=== PATIENT | female | born 1955 | race Two or more races ===

== ENCOUNTER 2024-08-06 12:32 | Inpatient (IN) | payer OTHER, MEDICAID ==
[~2024-08-06] VITALS: Ht 149.9 cm; Wt 64.0 kg
--- NOTE | 2024-08-06 14:12 | ED.PDOC ---
History of Present Illness HPI Comments 69-year-old female presents with a chief complaint of rectal pain and chills x 2 days. Patient states that her pain is localized to her rectum, radiates to her LLQ/RLQ, describes as aching, and rates her pain a 10/10. Patient denies any rectal bleeding or blood in her stool. Patient reports that her last colonoscopy was x 2 years ago and was told that she had Diverticulitis. Patient denies any penetration or trauma to her rectum prior to onset of symptoms. Chief Complaint: Rectal Pain Time Seen by MD: 14:04 Reviewed Notes: Nurses Notes, Medications, Allergies Allergies: Coded Allergies: NO KNOWN ALLERGIES (Unverified , 08/06/24) Information Source: Patient Mode of Arrival: Ambulatory Severity: Moderate Timing: Days Duration: Since onset Prehospital treatment: None Past Medical History PAST MEDICAL HISTORY: Asthma, CVA, UTI'S Past Medical History (Other): Aneurysm, Lupus Surgical History: Cholecystectomy Surgical History (Other): Cataracts DAIRY INSPECTOR History: Denies all DAIRY INSPECTOR Hx Family History Family History: Reviewed,noncontributory to illness Social History Smoker: Non-Smoker Alcohol: Denies ETOH Use Drugs: Denies Drug Use Lives In: Home Constitutional: reports: chills; denies: diaphoresis, fatigue, fever, malaise, sweats, weakness, others EENTM: denies: blurred vision, double vision, ear bleeding, ear discharge, ear drainage, ear pain, ear ringing, eye pain, eye redness, hearing loss, mouth pain, mouth swelling, nasal discharge, nose bleeding, nose congestion, nose pain, photophobia, tearing, throat pain, throat swelling, voice changes, others Respiratory: denies: cough, hemoptysis, orthopnea, SOB at rest, shortness of breath, SOB with excertion, stridor, wheezing, others Cardiovascular: denies: chest pain, dizzy spells, diaphoresis, Dyspnea on exertion, edema, irregular heart beat, left arm pain, lightheadedness, palpitations, PND, syncope, others Gastrointestinal: reports: rectal pain; denies: abdomen distended, abdominal pain, blood streaked bowels, constipated, diarrhea, dysphagia, difficulty swallowing, hematemesis, melena, nausea, poor appetite, poor fluid intake, rec alina bleeding, vomiting, others Genitourinary: denies: abnormal vagina bleeding, burning, dyspareunia, dysuria, flank pain, frequency, hematuria, incontinence, pain, , vagina discharge, urgency, others Neurological: denies: dizziness, fainting, headache, left sided numbness, left sided weakness, numbness, paresthesia, pre-existing deficit, right sided numbness, right sided weakness, seizure, speech problems, tingling, tremors, weakness, others Musculoskeletal: denies: back pain, gout, joint pain, joint swelling, muscle pain, muscle stiffness, neck pain, others Integumetry: denies: bruises, change in color, change in hair/nails, dryness, laceration, lesions, lumps, rash, wounds, others Allergic/Immunocompromised: denies: Difficulty Healing, Frequent Infections, Hives, Itching, others Hematologic/Lymphatic: denies: anemia, blood clots, easy bleeding, easy bruising, swollen glands, others Endocrine: denies: excessive hunger, excessive sweating, excessive thirst, excessive urination, flushing, intolerance to cold, intolerance to heat, unexplained weight gain, unexplained weight loss, others Psychiatric: denies: anxiety, bipolar disorder, depression, hopeless, panic disorder, schizophrenia, sleepless, suicidal, others All Other Systems: Reviewed and Negative Physical Exam General Appearance: Moderate Distress HEENT: Normal ENT Inspection, Pharynx Normal, TMs Normal Neck: Full Range of Motion, Non-Tender, Normal, Normal Inspection Respiratory: Chest Non-Tender, Lungs Clear, No Accessory Muscle Use, No Respiratory Distress, Normal Breath Sounds Cardiovascular: No Edema, No JVD, No Murmur, No Gallop, Normal Peripheral Pulses, Regular Rate/Rhythm Breast Exam: Deferred Gastrointestinal: No Organomegaly, No Pulsatile Mass, Normal Bowel Sounds, Soft, Suprapubic, Tenderness Genitalia: Deferred Pelvic: Deferred Rectal: Deferred Extremities: No calf tenderness, Normal capillary refill, Normal inspection, Normal range of motion, Non-tender, No pedal edema Musculoskeletal : Apperance: Normal Neurologic: Alert, claim review medical director II-XII nml as Tested, No Motor Deficits, Normal Affect, Normal Mood, No Sensory Deficits Cerebellar Function: Normal Reflexes: Normal Skin: Dry, Normal Color, Warm Lymphatic: No Adenopathy Was a procedure done? Was a procedure done?: No Differential Dx Considerations may include: Diverticulitis, UTI, rectal mass, generalized weakness X-Ray, Labs, Meds, VS Vital Signs Date Time Temp Pulse Resp B/P (MAP) Pulse Ox O2 Delivery O2 Flow Rate FiO2 08/06/24 13:17 97.8 89 16 148/82 (104) 96 Lab Test 08/06/24 14:30 08/06/24 13:04 Range/Units White Blood Count 4.7 4.4-10.8 10^3/uL Red Blood Count 4.31 4.0-5.20 10^6/uL Hemoglobin 12.5 12.2-16.2 g/dL Hematocrit 37.9 36.0-46.0 % Mean Corpuscular Volume 88.0 80.0-100.0 fL Mean Corpuscular Hemoglobin 29.1 28.0-32.0 pg Mean Corpuscular Hemoglobin Concent 33.0 32.0-36.0 g/dL Red Cell Distribution Width 14.0 11.8-14.3 % Platelet Count 250 140-450 10^3/uL Mean Platelet Volume 8.1 6.9-10.8 fL Neutrophils (%) (Auto) 58.9 37.0-80.0 % Lymphocytes (%) (Auto) 28.2 10.0-50.0 % Monocytes (%) (Auto) 8.4 0.0-12.0 % Eosinophils (%) (Auto) 3.5 0.0-7.0 % Basophils (%) (Auto) 1.0 0.0-2.0 % Neutrophils # (Auto) 2.8 1.6-8.6 10 ^3/uL Lymphocytes # (Auto) 1.3 0.4-5.4 10 ^3/uL Monocytes # (Auto) 0.4 0-1.3 10 ^3/uL Eosinophils # (Auto) 0.2 0-0.8 10 ^3/uL Basophils # (Auto) 0 0-0.2 10 ^3/uL Nucleated Red Blood Cells 0.2 % Sodium Level 136 136-145 mmol/L Potassium Level 4.6 3.5-5.1 mmol/L Chloride Level 104 98-107 mmol/L Carbon Dioxide Level 25 20-31 mmol/L Anion Gap 7 5-15 Blood Urea Nitrogen 13 9-23 mg/dL Creatinine 0.77 0.550-1.02 mg/dL Glomerular Filtration Rate Calc 83 >90 mL/min BUN/Creatinine Ratio 16.9 10.0-20.0 Serum Glucose 103 74-106 mg/dL Calcium Level 9.0 8.7-10.4 mg/dL Total Bilirubin 0.3 0.2-1.0 mg/dL Aspartate Amino Transferase (AST) 17 13-40 U/L Alanine Aminotransferase (ALT) 20 7-40 U/L Alkaline Phosphatase 95 46-116 U/L Total Protein 7.0 5.7-8.2 g/dL Albumin 4.6 3.2-4.8 g/dL Lipase 41 12-53 U/L Urine Color Light-yellow Yellow Urine Clarity Turbid H Clear Urine pH 6.0 5.0-9.0 Urine Specific [place] 1.018 1.001-1.035 Urine Protein Trace H Negative Urine Ketones Negative Negative Urine Blood Negative Negative /uL Urine Nitrite Negative Negative Urine Bilirubin Negative Negative Urine Urobilinogen Normal Negative mg/dL Urine Leukocyte Esterase Negative Negative /uL Urine RBC 3 0 - 4 /hpf Urine Microscopic WBC 2 0-5 /HPF Urine Squamous Epithelial Cells Mod <5 /hpf Urine Bacteria Few H None Seen /hpf Urine Mucus Few None Seen Urine Yeast (Budding) Occasional None Seen /hpf Urine Glucose Normal Normal mg/dL Abdomen/Pelvis CT Scan Impression: 1. There is no acute process in the abdomen and pelvis. 2. Colonic diverticulosis without evidence of acute diverticulitis. 3. Cholecystectomy. The patient's CBC is within normal limits The chemistry panel is within normal limits The urine test is negative for any infection At this time, the patient was being admitted to the hospitalist The patient understands and agrees with the management Images Reviewed?: Images reviewed and evaluated by me Time of 1ST Reevaluation: 14:34 Reevaluation 1ST: Unchanged Patient Education/Counseling: Diagnosis, Treatment, Prognosis Family Education/Counseling: Diagnosis, Treatment, Prognosis Departure 1 Departure Time of Disposition: 18:13 Impression: Primary Impression: Rectal pain Additional Impression: Intractable abdominal pain Disposition: ADMITTED INPATIENT Admit to: Med Surg Condition: Fair Critical Care Note Critical Care Time?: No Stability Stability form required: Yes Unstable for transfer: ED Physician Assesment (Clinical assesment) Heart Score Heart Score: Heart Score Response (Comments) Value History N/A 0 EKG N/A 0 Age N/A 0 Risk Factors N/A 0 Troponin N/A 0 Total 0 I personally scribed for JACK DOMINGO MD ([email or web address]) on 08/06/24 at 14:12. Electronically submitted by Yeison Aquino ([email or web address]). I personally scribed for JACK DOMINGO MD ([email or web address]) on 08/06/24 at 15:53. Electronically submitted by Yeison Aquino ([email or web address]). JACK DOMINGO MD Aug 06, 2024 14:12
--- NOTE | 2024-08-06 14:31 | DVH ---
CT ABDOMEN AND PELVIS WITHOUT CONTRAST CLINICAL HISTORY: pain TECHNIQUE: Multiple contiguous axial images of the abdomen and pelvis without intravenous contrast. The images were reformatted degenerate coronal and sagittal reconstructions. All CT scans at this medical facility are performed using dose modulation techniques as appropriate t o a performed exam including the following:Automated exposure control was utilized; adjustment of the MA and/or KV according to patient size; and use of iterative reconstruction technique. Radiation Dose Information: CT Dose: CTDI volume is 7.38 mGy. Dose-length product is 354.6 mGy*cm Comparison: None FINDINGS: Evaluation of the abdomen and pelvis is limited without intravenous contrast. Gallbladder is surgically absent. The liver, pancreas, kidneys, adrenal glands, and spleen appear within normal limits. There is no gross evidence of abdominal lymphadenopathy. There is no free fluid or free air. The stomach grossly appears unremarkable. The small and large bowel loops demonstrate normal caliber . There are scattered diverticula in the colon without evidence of acute diverticulitis. There is a normal-appearing appendix seen in the right lower quadrant abdomen. There are no associated inflammat ory changes. The abdominal aorta and IVC appear within normal limits. The bladder appears unremarkable for the degree of distention. Pelvic organ appears within normal hicks its. There is no gross evidence of a pelvic mass. There is no free fluid collection. Lung bases are clear. There is no acute osseous abnormality. IMPRESSION: 1. There is no acute process in the abdomen and pelvis. 2. Colonic diverticulosis without evidence of acute diverticulitis. 3. Cholecystectomy. HS:Y
[2024-08-06 15:02] LABS: Basophils # (auto) 0 10 ^3/uL (0-0.2); Eosinophils # (auto) 0.2 10 ^3/uL (0-0.8); Eosinophils % (auto) 3.5 % (0.0-7.0); Hematocrit 37.9 % (36.0-46.0); Hemoglobin 12.5 g/dL (12.2-16.2); Lymphocytes # (auto) 1.3 10 ^3/uL (0.4-5.4); Lymphocytes % (auto) 28.2 % (10.0-50.0); Mean Corpuscular Hemoglobin 29.1 pg (28.0-32.0); Monocytes # (auto) 0.4 10 ^3/uL (0-1.3); Monocytes % (auto) 8.4 % (0.0-12.0); Neutrophils # (auto) 2.8 10 ^3/uL (1.6-8.6); Neutrophils % (auto) 58.9 % (37.0-80.0); Nucleated Red Blood Cells % 0.2 %; Platelet Count (auto) 250 10^3/uL (140-450); Red Blood Cells 4.31 10^6/uL (4.0-5.20); White Blood Cell 4.7 10^3/uL (4.4-10.8)
[2024-08-06 15:21] LABS: Alanine Aminotransferase 20 U/L (7-40); Alkaline Phosphatase 95 U/L (46-116); Anion Gap 7 (5-15); Aspartate Aminotransferase 17 U/L (13-40); BUN/Creatinine Ratio 16.9 (10.0-20.0); Blood Urea Nitrogen 13 mg/dL (9-23); Carbon Dioxide 25 mmol/L (20-31); Chloride 104 mmol/L (98-107); Glucose 103 mg/dL (74-106); Potassium 4.6 mmol/L (3.5-5.1); Sodium 136 mmol/L (136-145)
[2024-08-06 15:22] LABS: Albumin 4.6 g/dL (3.2-4.8); Bilirubin, Total 0.3 mg/dL (0.2-1.0)
[2024-08-06 15:36] LABS: Urine Bacteria FEW /hpf (None Seen); Urine Blood Negative /uL (Negative); Urine Budding Yeast OCCASIONAL /hpf (None Seen); Urine Clarity Turbid (Clear); Urine Color Light-Yellow (Yellow); Urine Mucus FEW (None Seen); Urine Protein, UAD TRACE (Negative); Urine Specific Gravity 1.018 (1.001-1.035); Urine Squamous Epithelial Cell MOD /hpf (<5); Urine Urobilinogen Normal (Negative); Urine WBC 2 /HPF (0-5)
[2024-08-06 15:44] LABS: Lipase 41 U/L (12-53)
[2024-08-06 21:40] VITALS: PULSE 87; RESP 18; O2SAT 97
--- NOTE | 2024-08-06 22:34 | DVHHPRES ---
History of Present Illness Resident Creating Document: AMOL STORY RESIDENT History of Present Illness 69-year-old female with past medical history of lupus, Sjogren syndrome, CVA in 2010, cerebral aneurysm 3.5 cm in 2022, rectocele s/p pelvic mesh, asthma, hypertension, recurrent UTIs, diverticulosis, who comes in due to rectal pain that has been ongoing for the past 3 days. Patient notes that pain is 9/10, burning and heavy in nature with radiation to the lower back and right lower quadrant. Patient states pain is constant and mildly reduced with acetaminophen. Reports having normal bowel movements with last bowel movement 4 hours ago. On review of systems patient is complaining of fatigue, chills, palpitations and nausea. CT abdomen pelvis showed no acute process, diverticulosis without diverticulitis. Patient was admitted to [facility] 1 month ago for pelvic pain, patient notes investigation was done however findings were largely unremarkable and patient was sent home with oral NSAIDs which gradually improved her pelvic pain. Patient completed colonoscopy in 2022 which was largely unremarkable. Past Medical History lupus, Sjogren syndrome, CVA in 2010, cerebral aneurysm 3.5 cm in 2022, rectocele s/p pelvic mesh, asthma, hypertension, recurrent UTIs, diverticulosis Past Surgical History Cholecystectomy, pelvic mesh, cataract removal, cerebral angiogram in 2022 Past Social History Smoking: Quit 10 years ago, prior to that was smoking 3-5 cigarettes per day for 15 years Alcohol: Denies Drugs: Denies Allergies: [place], tramadol Review of Systems Constitutional: Yes: Chills, Malaise; No: Fever, Sweats, Weakness, Other Eyes: No: Pain, Vision change, Conjunctivae inflammation, Eyelid inflammation, Other, Redness ENT: No: Ear pain, Ear discharge, Nose pain, Nose discharge, Nose congestion, Mouth pain, Mouth swelling, Throat pain, Throat swelling, Other Respiratory: No: Cough, Dry, Shortness of breath, SOB with excertion, Wheezing, Hemoptysis, Pleuritic Pain, Sputum, Wheezing, Other Cardiovascular: Palpitations; No: Chest Pain, Orthopnea, Paroxysmal Noc. Dyspnea, Edema, Lt Headedness, Other Gastrointestinal: Nausea; No: Vomiting, Abdominal Pain, Diarrhea, Constipation, Melena, Hematochezia, Other Genitourinary: No Dysuria, No Frequency, No Incontinence, No Hematuria, No Retention, No Other Musculoskeletal: No: other, neck pain, shoulder pain, arm pain, back pain, hand pain, leg pain, foot pain Skin: No: Rash, Lesions, Jaundice, Bruising, Other Neurological: No: Weakness, Numbness, Incoordination, Change in speech, Confusion, Seizures, Other Allergies: Coded Allergies: Hydrocodone (Verified Allergy, Unknown, 08/07/24) Patient reports rapid HR/palpitations Tramadol (Verified Allergy, Unknown, 08/07/24) Patient reports hallucinations Exam Vital Signs Vital Signs Date Time Temp Pulse Resp B/P (MAP) Pulse Ox O2 Delivery O2 Flow Rate FiO2 08/06/24 21:40 87 18 97 Room Air* 0 21 08/06/24 21:40 98.0 142/77 (98) 98.0 General Appearance: Alert, Oriented X3, Cooperative, No acute distress HEENT: Atraumatic, PERRLA, EOMI Respiratory: Clear to auscultation, Normal air movement Cardiovascular: Regular rate, Normal S1, Normal S2, Other (Right lower quadrant tenderness to palpation ) Abdominal: Normal bowel sounds, Soft Extremities: No clubbing, No edema, Normal pulses Skin: No significant lesion Neuro: Normal gait, Normal speech, Sensation intact Psych/Mental Status: Mental status NL, Mood NL Labs/Xrays Labs Test 08/06/24 14:30 08/06/24 13:04 Range/Units White Blood Count 4.7 4.4-10.8 10^3/uL Red Blood Count 4.31 4.0-5.20 10^6/uL Hemoglobin 12.5 12.2-16.2 g/dL Hematocrit 37.9 36.0-46.0 % Mean Corpuscular Volume 88.0 80.0-100.0 fL Mean Corpuscular Hemoglobin 29.1 28.0-32.0 pg Mean Corpuscular Hemoglobin Concent 33.0 32.0-36.0 g/dL Red Cell Distribution Width 14.0 11.8-14.3 % Platelet Count 250 140-450 10^3/uL Mean Platelet Volume 8.1 6.9-10.8 fL Neutrophils (%) (Auto) 58.9 37.0-80.0 % Lymphocytes (%) (Auto) 28.2 10.0-50.0 % Monocytes (%) (Auto) 8.4 0.0-12.0 % Eosinophils (%) (Auto) 3.5 0.0-7.0 % Basophils (%) (Auto) 1.0 0.0-2.0 % Neutrophils # (Auto) 2.8 1.6-8.6 10 ^3/uL Lymphocytes # (Auto) 1.3 0.4-5.4 10 ^3/uL Monocytes # (Auto) 0.4 0-1.3 10 ^3/uL Eosinophils # (Auto) 0.2 0-0.8 10 ^3/uL Basophils # (Auto) 0 0-0.2 10 ^3/uL Nucleated Red Blood Cells 0.2 % Sodium Level 136 136-145 mmol/L Potassium Level 4.6 3.5-5.1 mmol/L Chloride Level 104 98-107 mmol/L Carbon Dioxide Level 25 20-31 mmol/L Anion Gap 7 5-15 Blood Urea Nitrogen 13 9-23 mg/dL Creatinine 0.77 0.550-1.02 mg/dL Glomerular Filtration Rate Calc 83 >90 mL/min BUN/Creatinine Ratio 16.9 10.0-20.0 Serum Glucose 103 74-106 mg/dL Calcium Level 9.0 8.7-10.4 mg/dL Total Bilirubin 0.3 0.2-1.0 mg/dL Aspartate Amino Transferase (AST) 17 13-40 U/L Alanine Aminotransferase (ALT) 20 7-40 U/L Alkaline Phosphatase 95 46-116 U/L Total Protein 7.0 5.7-8.2 g/dL Albumin 4.6 3.2-4.8 g/dL Lipase 41 12-53 U/L Urine Color Light-yellow Yellow Urine Clarity Turbid H Clear Urine pH 6.0 5.0-9.0 Urine Specific [place] 1.018 1.001-1.035 Urine Protein Trace H Negative Urine Ketones Negative Negative Urine Blood Negative Negative /uL Urine Nitrite Negative Negative Urine Bilirubin Negative Negative Urine Urobilinogen Normal Negative mg/dL Urine Leukocyte Esterase Negative Negative /uL Urine RBC 3 0 - 4 /hpf Urine Microscopic WBC 2 0-5 /HPF Urine Squamous Epithelial Cells Mod <5 /hpf Urine Bacteria Few H None Seen /hpf Urine Mucus Few None Seen Urine Yeast (Budding) Occasional None Seen /hpf Urine Glucose Normal Normal mg/dL Assessment/Plan Assessment/Plan Rectal pain, acute proctitis versus thrombosed internal hemorrhoids - CT abdomen pelvis:There is no acute process in the abdomen and pelvis. Colonic diverticulosis without evidence of acute diverticulitis. Cholecystectomy. - pelvic ultrasound: Atrophic pancreas. Unremarkable endometrium. Ovaries are not visualized. - colonoscopy from 03/27/2023: Severe diverticulosis in the entire examined colon, evidence of diverticular spasm. Nonbleeding internal hemorrhoids. Moderate pandiverticulosis. - acetaminophen 500 mg as needed for pain - topical lidocaine 2% as needed for pain Hypertension Asthma - aspirin 81 mg - losartan 50 mg - atorvastatin 10 mg - ipratropium and albuterol med nebs Q 8 hours as needed History of lupus History of Sjogren syndrome History of CVA with no residual deficits History of a cerebral aneurysm 3.5 cm - monitor PUD prophylaxis: protonix 40mg DVT prophylaxis: SCDs Goals of care: Full code, discussed for >16 minutes on 05/06/2025 Plan discussed with patient Plan discussed with Dr. Tompkins Plan discussed with: Patient, Other (RN) My Orders Orders - AMOL STORY RESIDENT Procedure Category Date Status Time Admit ADMIT 08/06/24 Transmitted 21:50 Code Status CODE 08/06/24 Transmitted 21:50 Vital Signs LAUREN 08/06/24 In Process 21:50 Review Orders With LAUREN 08/06/24 In Process Adm.Md 21:50 Notify Md Of Changes LAUREN 08/06/24 In Process From Base 21:50 Advance Directive LAUREN 08/06/24 In Process 21:50 Patient Condition ORDERS 08/06/24 Transmitted 21:50 Allergies LAUREN 08/06/24 In Process 21:50 Notify Md Of Changes LAUREN 08/06/24 In Process From Base 21:50 Stool Occult Blood LAB 08/06/24 Transmitted 22:31 Erythrocyte LAB 08/06/24 Transmitted Sedimentation Rate 22:31 C-Reactive Protein LAB 08/06/24 Verified 22:31 Chlamydia/Gc LAB 08/06/24 Verified Amplification 22:31 Hiv 1&2 Antibody LAB 08/06/24 Verified 22:31 Pelvic US 08/06/24 Verified 22:31 Urinalysis LAB 08/06/24 Verified 22:31 Stool Bacterial CARISSA 08/06/24 Verified Culture 22:31 Stool Wbc LAB 08/06/24 Verified 22:31 Cardiac DIET 08/07/24 Verified Diet-2gna,Lofat,Lochol Breakfast Acetaminophen Tab Or PHA 08/06/24 Verified Cap (Tylenol Tablet 22:45 Ipratropium Medneb PHA 08/06/24 Verified (Atrovent Medneb) 22:45 Albuterol Medneb PHA 08/06/24 Verified (Ventolin Medneb) 22:45 Losartan Tablet PHA 08/07/24 Verified (Cozaar Tablet) 10:00 Aspirin Tablet PHA 08/07/24 Verified 10:00 Pantoprazole Tablet PHA 08/07/24 Verified (Protonix Tablet) 06:00 Date of Service: Aug 06, 2024 Billing Provider: ONELIA MEANS MD Common Visit Codes: [id number] INP/OBS CARE (HIGH) AMOL STORY Aug 06, 2024 22:34 ONELIA MEANS MD Aug 13, 2024 15:55
[2024-08-06] MEDS ORDERED: IPRATROPIUM BROM 0.5 MG/2.5ML INH SOL NEB PRN (22:45)
[2024-08-06] MEDS ORDERED: ALBUTEROL SULF 2.5 MG/0.5ML(0.5%) NEB SOLN NEB PRN (22:45)
[2024-08-06 23:00] VITALS: O2SAT 97
--- NOTE | 2024-08-06 23:14 | DVH ---
TRANSABDOMINAL PELVIC ULTRASOUND CLINICAL HISTORY: s/p Pelvic mesh with rectal pain TECHNIQUE: Multiple grayscale ultrasound images were obtained of the pelvis via transabdominal appro ach. Limited color Doppler and spectral Doppler acquisitions were also obtained. COMPARISON: None FINDINGS: Uterus: 0.8 x 3.7 x 4.8 cm. The uterine contour is smooth. No myometrial masses are seen. Endometrium: 0.3 cm. No endometrial mass is seen. Right adnexa: right ovary is not visualized. No right adnexal mass seen. Left adnexa: left ovary is not visualized. No left adnexal mass seen. Other: None IMPRESSION: 1. Atrophic pancreas. Unremarkable endometrium. 2. Ovaries are not visualized
[2024-08-06 23:17] VITALS: BP 142/77; PULSE 87; RESP 18; TEMP 98; O2SAT 97
[2024-08-06 23:24] LABS: Erythrocyte Sedimentation Rate 14 mm/hr (0-20)
[2024-08-06] MEDS: ACETAMINOPHEN 500 MG TAB or CAP PO PRN (23:35)
[2024-08-06] MEDS: LOSARTAN POTASSIUM 50 MG TAB PO ONE (23:37)
[2024-08-07] VITALS (12 sets, daily range): BP systolic 119–153; BP diastolic 47–70; PULSE 59–78; RESP 18–20; TEMP 97.4–98.2; O2SAT 93–97
[2024-08-07] MEDS ORDERED: LIDOCAINE 2% TOPICAL JELLY 5 ML URJT TOP PRN (00:30)
[2024-08-07] MEDS ORDERED: OMEG1400 PO (01:07)
[2024-08-07] MEDS ORDERED: ALEN70TA74 PO (01:07)
[2024-08-07] MEDS ORDERED: HYDR200T36 PO (01:07)
[2024-08-07] MEDS ORDERED: FLUT220A6 INH (01:07)
[2024-08-07] MEDS ORDERED: ASPI-325 PO (01:07)
[2024-08-07] MEDS ORDERED: OMEP1CAP70 PO (01:07)
[2024-08-07] MEDS ORDERED: HYDR2.5C65 (01:07)
[2024-08-07] MEDS ORDERED: ATOR10TA52 PO (01:07)
[2024-08-07] MEDS ORDERED: ESTR0.1C5 VG (01:07)
[2024-08-07] MEDS ORDERED: LOSA-534 PO (01:07)
[2024-08-07] MEDS ORDERED: METH-928 PO (01:07)
[2024-08-07] MEDS ORDERED: ALBU108A5 INH (01:07)
[2024-08-07] MEDS ORDERED: DICL1GEL73 (01:07)
[2024-08-07] MEDS ORDERED: CHOL20007 PO (01:07)
[2024-08-07] MEDS ORDERED: TACR0.1O7 EX (01:07)
[2024-08-07] MEDS ORDERED: CETI-120 PO (01:07)
[2024-08-07] MEDS ORDERED: OYST500T28 PO (01:07)
[2024-08-07] MEDS ORDERED: PANTOPRAZOLE 40 MG TAB PO SCH (06:00)
[2024-08-07 06:39] LABS: Basophils # (auto) 0 10 ^3/uL (0-0.2); Eosinophils # (auto) 0.2 10 ^3/uL (0-0.8); Eosinophils % (auto) 5.6 % (0.0-7.0); Hematocrit 36.1 % (36.0-46.0); Hemoglobin 11.9 g/dL (12.2-16.2); Lymphocytes # (auto) 1.5 10 ^3/uL (0.4-5.4); Lymphocytes % (auto) 35.9 % (10.0-50.0); Mean Corpuscular Hemoglobin 29.3 pg (28.0-32.0); Mean Corpuscular Volume 88.7 fL (80.0-100.0); Monocytes # (auto) 0.4 10 ^3/uL (0-1.3); Monocytes % (auto) 9.6 % (0.0-12.0); Neutrophils # (auto) 2.1 10 ^3/uL (1.6-8.6); Neutrophils % (auto) 47.9 % (37.0-80.0); Platelet Count (auto) 236 10^3/uL (140-450); Red Blood Cells 4.07 10^6/uL (4.0-5.20); Red Cell Distribution Width 13.7 % (11.8-14.3); White Blood Cell 4.3 10^3/uL (4.4-10.8)
[2024-08-07 06:48] LABS: Chloride 105 mmol/L (98-107); Sodium 137 mmol/L (136-145)
[2024-08-07 06:49] LABS: Anion Gap 8 (5-15); Carbon Dioxide 24 mmol/L (20-31)
[2024-08-07 06:54] LABS: BUN/Creatinine Ratio 15.4 (10.0-20.0); Blood Urea Nitrogen 10 mg/dL (9-23); Glucose 88 mg/dL (74-106)
[2024-08-07] MEDS: ASPirin 81 mg TAB PO SCH (10:09)
[2024-08-07] MEDS: PANTOPRAZOLE 40 MG/10 ML VIAL INJ IV SCH (10:10)
[2024-08-07] MEDS: LOSARTAN POTASSIUM 50 MG TAB PO SCH (10:10)
--- NOTE | 2024-08-07 13:08 | DVHPN2 ---
Reviewed: Care Plan, H&P, Labs, Medications, Previous Orders, Radiology Changes from previous H/P or p: No Changes Eyes: No Pain, No Vision change, No Conjunctivae inflammation, No Eyelid inflammation, No Other, No Redness ENT: No Ear pain, No Ear discharge, No Nose pain, No Nose discharge, No Nose congestion, No Mouth pain, No Mouth swelling, No Throat pain, No Throat swelling, No Other Cardiovascular: No Chest Pain; Palpitations; No Orthopnea, No Paroxysmal Noc. Dyspnea, No Edema, No Lt Headedness, No Other Respiratory: No Cough, No Dry, No Shortness of breath, No SOB with excertion, No Wheezing, No Hemoptysis, No Pleuritic Pain, No Sputum, No Other Gastrointestinal: Nausea; No Vomiting, No Abdominal Pain, No Diarrhea, No Constipation, No Melena, No Hematochezia, No Other Genitourinary: No Dysuria, No Frequency, No Incontinence, No Hematuria, No Retention, No Other Musculoskeletal: No other, No neck pain, No shoulder pain, No arm pain, No back pain, No hand pain, No leg pain, No foot pain Skin: No Rash, No Lesions, No Jaundice, No Bruising, No Other Objective Vitals Vital Signs Date Time Temp Pulse Resp B/P (MAP) Pulse Ox O2 Delivery O2 Flow Rate FiO2 08/07/24 10:10 119/67 08/07/24 10:00 95 Room Air 0.0 08/07/24 10:00 21 08/07/24 09:00 97.9 59 18 97.9 Intake/Output Intake and Output 08/07/24 07:00 Intake Total 240 ml Output Total 0 ml Balance 240 ml Intake Oral 240 ml Output Urine Total 0 ml Medications Current Medications Medications Dose Ordered Sig/Fatou Route Start Time Stop Time Status Last Admin Dose Admin Acetaminophen 500 mg Q6HP PRN PO 08/06/24 22:45 08/07/24 10:53 500 MG Ipratropium [place] 0.5 mg Q8HPRN PRN NEB 08/06/24 22:45 Albuterol 2.5 mg Q8HPRN PRN NEB 08/06/24 22:45 Losartan Potassium 50 mg DAILY PO 08/07/24 10:00 08/07/24 10:10 50 MG Aspirin 81 mg DAILY PO 08/07/24 10:00 08/07/24 10:09 81 MG Atorvastatin Calcium 10 mg HS PO 08/07/24 22:00 Pantoprazole Sodium 40 mg DAILY IV 08/07/24 10:00 08/07/24 10:10 40 MG Lidocaine HCl 5 ml Q8HPRN PRN TOP 08/07/24 00:30 Laboratory Results Laboratory Tests 08/07/24 05:50 Chemistry Test 08/06/24 14:30 08/07/24 05:50 Albumin 4.6 g/dL (3.2-4.8) Calcium Level 9.0 mg/dL (8.7-10.4) 9.0 mg/dL (8.7-10.4) Total Protein 7.0 g/dL (5.7-8.2) Lipid panel Test 08/06/24 14:30 Lipase 41 U/L (12-53) LFT Test 08/06/24 14:30 Alanine Aminotransferase (ALT) 20 U/L (7-40) Alkaline Phosphatase 95 U/L (46-116) Aspartate Amino Transferase (AST) 17 U/L (13-40) Total Bilirubin 0.3 mg/dL (0.2-1.0) Urinalysis Test 08/06/24 13:04 Urine Color Light-yellow (Yellow) Urine Clarity Turbid (Clear) H Urine pH 6.0 (5.0-9.0) Urine Specific [place] 1.018 (1.001-1.035) Urine Protein Trace (Negative) H Urine Ketones Negative (Negative) Urine Blood Negative /uL (Negative) Urine Nitrite Negative (Negative) Urine Bilirubin Negative (Negative) Urine Urobilinogen Normal mg/dL (Negative) Urine Leukocyte Esterase Negative /uL (Negative) Urine RBC 3 /hpf (0 - 4) Urine Microscopic WBC 2 /HPF (0-5) Urine Squamous Epithelial Cells Mod /hpf (<5) Urine Bacteria Few /hpf (None Seen) H Urine Mucus Few (None Seen) Urine Yeast (Budding) Occasional /hpf (None Urine Glucose Normal mg/dL (Normal) Labs and/or images reviewed: Labs reviewed by me, Image(s) reviewed by me Assessment/Plan Assessment/Plan Rectal pain: [place]: Anusol suppository, GI consult Asthma Hypertension Diverticulosis Rectocele status post pelvic mesh History of CVA 2010 Lupus Sjograns syndrome Cerebral aneurysm 2023 CT abdomen pelvis without contrast negative Time spent 55 minutes Patient is full code Advanced care planning time 20 minutes Plan discussed with: Patient Date of Service: Aug 07, 2024 Billing Provider: WHIT AMEZCUA MD Common Visit Codes: [id number] INP/OBS CARE(HIGH) Secondary Visit Codes: [id number] CARE PLAN 30 MINUTES WHIT AMEZCUA MD Aug 07, 2024 13:07
[2024-08-07] MEDS: OXYCODONE W/ ACETAMINOPHEN 5/325MG TABLET PO PRN (14:37)
[2024-08-07] MEDS: HYDROCORTISONE ACET 25 MG RECTAL SUPP PR ONE (14:38)
[2024-08-07] MEDS ORDERED: DICYCLOMINE HCL 10 MG CAP PO PRN (16:45)
--- NOTE | 2024-08-07 17:04 | DVHINCON2 ---
Date of service: Aug 07, [address] Ludwig Sanford Reason for Consultation Rectal pain History of Present Illness 69-year-old female with past medical history of lupus, Sjogren syndrome, CVA in 2010, cerebral aneurysm 3.5 cm in 2022, rectocele s/p pelvic mesh, asthma, hyp ertension, recurrent UTIs, diverticulosis, who comes in due to rectal pain that has been ongoing for the past 3 days. Patient notes that pain is 9/10, burning and heavy in nature with radiation to the lower back and right lower quadrant. Patient states pain is constant and mildly reduced with acetaminophen. Reports having normal bowel movements with last bowel movement [address] abdomen pelvis showed no acute process, diverticulosis without diverticulitis. Patient was admitted to [facility] 1 month ago for pelvic pain, patient notes investigation was done however findings were largely unremarkable and patient was sent home with oral NSAIDs which gradually improved her pelvic pain. Patient completed colonoscopy in 2022 also due to her rectal pain and spasms which was largely unremarkable. Patient was seen at bedside and a rectal examination was performed that showed 1+ palpable hemorrhoids, no tenderness no fissure no bleeding and an empty stool wall. Patient is feeling with better with her pain medications and the Anusol HC suppository Past Medical History Past Medical History lupus, Sjogren syndrome, CVA in 2010, cerebral aneurysm 3.5 cm in 2022, rectocele s/p pelvic mesh, asthma, hypertension, recurrent UTIs, diverticulosis Past Surgical History Past Surgical History Cholecystectomy, pelvic mesh, cataract removal, cerebral angiogram in 2022 Family History: Diabetes mellitus G8 MOTHER, FH: cancer G8 FATHER, Hypertension G8 MOTHER, Allergies: Coded Allergies: Hydrocodone (Verified Allergy, Unknown, 08/07/24) Patient reports rapid HR/palpitations Tramadol (Verified Allergy, Unknown, 08/07/24) Patient reports hallucinations Home Meds Reported Medications Tacrolimus (Tacrolimus) 0.1 % Oin, 0.1 % EX, OIN 08/07/24 Cetirizine HCl (Cetirizine Hydrochloride) 10 Mg Tab, 1 TAB PO DAILY 08/07/24 Fluticasone Propionate (Fluticasone Propionate Hf) 220 Mcg/Act Aer, 2 PUFF INH PRN for SHORTNESS OF BREATH 08/07/24 Albuterol Sulfate (Albuterol Sulfate Hfa) 108 Mcg/Act Aer, 2 PUFF INH PRN for SHORTNESS OF BREATH 08/07/24 Diclofenac Sodium (Topical) (Diclofenac Sodium) 1 % Gel 08/07/24 Hydrocortisone Base (Hydrocortisone) 2.5 % Cre 08/07/24 Estradiol Vaginal (Estradiol) 0.1 Mg/Gm Cre, 1 GM VG 08/07/24 Alendronate Sodium (Alendronate Sodium) 70 Mg Tab, 1 TAB PO QWEEKLY 08/07/24 Methenamine Hippurate (Methenamine Hippurate) 1 Gm Tab, 1 TAB PO DAILY 08/07/24 [place]-3 Fatty Acids ([place]helsea-3) 1,400 Mg Cap, 1000 MG PO DAILY, CAP 08/07/24 Cholecalciferol (VITAMIN D3) 2,000 Unit Tab, 50 MCG PO DAILY, TAB 08/07/24 Oyster Shell Calcium (Calcium Oyster Shell) 500 Mg Tab, 500 MG PO DAILY, TAB 08/07/24 Hydroxychloroquine Sulfate (Hydroxychloroquine Sulfat) 200 Mg Tab, 1 TAB PO DAILY 08/07/24 Atorvastatin Calcium (ATORVASTATIN CALCIUM) 10 Mg Tab, 1 TAB PO DAILY 08/07/24 Aspirin (Aspirin Low Dose) 81 Mg Tab, 1 TAB PO DAILY 08/07/24 Losartan Potassium (Losartan Potassium) 50 Mg Tab, 1 TAB PO DAILY 08/07/24 Omeprazole (Omeprazole Dr) 20 Mg Cap, 1 CAP PO BID 08/07/24 Current Medications Current Medications Medications (Trade) Dose Ordered Sig/Fatou Route PRN Reason Start Time Stop Time Status Last Admin Acetaminophen (Tylenol Tablet Or Capsule) 500 mg Q6HP PRN PO MILD PAIN (1-3 PAIN SCALE) 08/06/24 22:45 08/07/24 10:53 Ipratropium [place] (Atrovent Medneb) 0.5 mg Q8HPRN PRN NEB SHORTNESS OF BREATH 08/06/24 22:45 Albuterol (Ventolin Medneb) 2.5 mg Q8HPRN PRN NEB SHORTNESS OF BREATH 08/06/24 22:45 Losartan Potassium (Cozaar Tablet) 50 mg DAILY PO 08/07/24 10:00 08/07/24 10:10 Aspirin 81 mg DAILY PO 08/07/24 10:00 08/07/24 10:09 Pantoprazole Sodium (Protonix Tablet) 20 mg DAILY@0600 PO 08/07/24 06:00 08/07/24 00:19 DC Atorvastatin Calcium (Lipitor) 10 mg HS PO 08/07/24 22:00 Pantoprazole Sodium (Protonix) 40 mg DAILY IV 08/07/24 10:00 08/07/24 10:10 Lidocaine HCl (Lidocaine HCl Jelly) 5 ml Q8HPRN PRN TOP BREAKTHROUGH PAIN 08/07/24 00:30 Oxycodone/ Acetaminophen (Percocet 5/ 325MG Tablet) 1 tab Q4HP PRN PO MODERATE PAIN (4-6 PAIN SCALE) 08/07/24 13:15 08/07/24 14:37 Hydrocortisone Acetate (Anucort-Hc Suppository) 25 mg Q12HR [place] 08/07/24 22:00 Dicyclomine HCl (Bentyl Capsule) 10 mg BID PRN PO RECTAL PAIN 08/07/24 16:45 UNV Vital Signs Vital Signs Date Time Temp Pulse Resp B/P (MAP) Pulse Ox O2 Delivery O2 Flow Rate FiO2 08/07/24 13:00 97.9 68 18 138/70 (92) 94 97.9 08/07/24 10:00 Room Air 0.0 08/07/24 10:00 21 Physical Exam General Appearance: Alert, Oriented X3, Cooperative, No acute distress HEENT: Atraumatic, PERRLA, EOMI Respiratory: Clear to auscultation, Normal air movement Cardiovascular: Regular rate, Normal S1, Normal S2, Other (Right lower quadrant tenderness to palpation ) Abdominal: Normal bowel sounds, Soft Extremities: No clubbing, No edema, Normal pulses Skin: No significant lesion Neuro: Normal gait, Normal speech, Sensation intact Psych/Mental Status: Mental status NL, Mood NL Rectal exam: 1+ palpable internal hemorrhoids, nontender no bleeding an empty stool vault, no fissure Labs/Diagnostic Data Labs Test 08/07/24 05:50 08/07/24 00:08 08/06/24 14:30 08/06/24 13:04 Range/Units White Blood Count 4.3 L 4.4-10.8 10^3/uL Red Blood Count 4.07 4.0-5.20 10^6/uL Hemoglobin 11.9 L 12.2-16.2 g/dL Hematocrit 36.1 36.0-46.0 % Mean Corpuscular Volume 88.7 80.0-100.0 fL Mean Corpuscular Hemoglobin 29.3 28.0-32.0 pg Mean Corpuscular Hemoglobin Concent 33.0 32.0-36.0 g/dL Red Cell Distribution Width 13.7 11.8-14.3 % Platelet Count 236 140-450 10^3/uL Mean Platelet Volume 8.2 6.9-10.8 fL Neutrophils (%) (Auto) 47.9 37.0-80.0 % Lymphocytes (%) (Auto) 35.9 10.0-50.0 % Monocytes (%) (Auto) 9.6 0.0-12.0 % Eosinophils (%) (Auto) 5.6 0.0-7.0 % Basophils (%) (Auto) 1.0 0.0-2.0 % Neutrophils # (Auto) 2.1 1.6-8.6 10 ^3/uL Lymphocytes # (Auto) 1.5 0.4-5.4 10 ^3/uL Monocytes # (Auto) 0.4 0-1.3 10 ^3/uL Eosinophils # (Auto) 0.2 0-0.8 10 ^3/uL Basophils # (Auto) 0 0-0.2 10 ^3/uL Nucleated Red Blood Cells 0.0 % Sodium Level 137 136-145 mmol/L Potassium Level 4.0 3.5-5.1 mmol/L Chloride Level 105 98-107 mmol/L Carbon Dioxide Level 24 20-31 mmol/L Anion Gap 8 5-15 Blood Urea Nitrogen 10 9-23 mg/dL Creatinine 0.65 0.550-1.02 mg/dL Glomerular Filtration Rate Calc 95 >90 mL/min BUN/Creatinine Ratio 15.4 10.0-20.0 Serum Glucose 88 74-106 mg/dL Calcium Level 9.0 8.7-10.4 mg/dL HIV (1&2) Antibody Negative Negative Erythrocyte Sedimentation Rate 14 0-20 mm/hr Total Bilirubin 0.3 0.2-1.0 mg/dL Aspartate Amino Transferase (AST) 17 13-40 U/L Alanine Aminotransferase (ALT) 20 7-40 U/L Alkaline Phosphatase 95 46-116 U/L C-Reactive Protein High Sensitivity 0.33 <1.0 mg/dL Total Protein 7.0 5.7-8.2 g/dL Albumin 4.6 3.2-4.8 g/dL Lipase 41 12-53 U/L Urine Color Light-yellow Yellow Urine Clarity Turbid H Clear Urine pH 6.0 5.0-9.0 Urine Specific [place] 1.018 1.001-1.035 Urine Protein Trace H Negative Urine Ketones Negative Negative Urine Blood Negative Negative /uL Urine Nitrite Negative Negative Urine Bilirubin Negative Negative Urine Urobilinogen Normal Negative mg/dL Urine Leukocyte Esterase Negative Negative /uL Urine RBC 3 0 - 4 /hpf Urine Microscopic WBC 2 0-5 /HPF Urine Squamous Epithelial Cells Mod <5 /hpf Urine Bacteria Few H None Seen /hpf Urine Mucus Few None Seen Urine Yeast (Budding) Occasional None Seen /hpf Urine Glucose Normal Normal mg/dL CT SCAN ABD PELVIS IMPRESSION: 1. There is no acute process in the abdomen and pelvis. 2. Colonic diverticulosis without evidence of acute diverticulitis. 3. Cholecystectomy. Pelvic USG IMPRESSION: 1. Atrophic pancreas. Unremarkable endometrium. 2. Ovaries are not visualized Problems(with codes): (1) Intractable abdominal pain (2) Rectal pain Plan/Recommendation Plan Patient is clinically feeling better Continue Anusol HC rectal suppositories I will give her Bentyl 10 mg p.o. twice a day as needed for pain Supportive care ; pain control Advance diet as tolerated Patient does not need any further GI intervention at this time She will follow up in my office as an outpatient for ongoing management Plan discussed with: Patient, Other (Nurse) DORIAN RODRIGUEZ MD Aug 07, 2024 17:04
[2024-08-07] MEDS: HYDROCORTISONE ACET 25 MG RECTAL SUPP PR SCH (21:49)
[2024-08-07] MEDS: ATORVASTATIN 20 MG TAB PO SCH (21:49)
[2024-08-08 01:00] VITALS: BP 126/68; PULSE 62; RESP 18; TEMP 98; O2SAT 98
[2024-08-08 05:00] VITALS: BP_SYST 120; BP_SYST 153; BP_DIAS 66; BP_DIAS 85; PULSE 66; PULSE 77; RESP 18; TEMP 98.4; TEMP 98.8; O2SAT 98; O2SAT 99
[2024-08-08 08:25] VITALS: PULSE 62; RESP 18; O2SAT 94
[2024-08-08 09:00] VITALS: BP 103/44; PULSE 62; RESP 18; TEMP 98; O2SAT 96
[2024-08-08] MEDS ORDERED: DICY10CA PO (09:28)
[2024-08-08] MEDS ORDERED: HYDR25SU21 PR (09:28)
--- NOTE | 2024-08-08 09:29 | DVHPN2 ---
Reviewed: Care Plan, H&P, Labs, Medications, Previous Orders, Radiology Changes from previous H/P or p: No Changes Eyes: No Pain, No Vision change, No Conjunctivae inflammation, No Eyelid inflammation, No Other, No Redness ENT: No Ear pain, No Ear discharge, No Nose pain, No Nose discharge, No Nose congestion, No Mouth pain, No Mouth swelling, No Throat pain, No Throat swelling, No Other Cardiovascular: No Chest Pain; Palpitations; No Orthopnea, No Paroxysmal Noc. Dyspnea, No Edema, No Lt Headedness, No Other Respiratory: No Cough, No Dry, No Shortness of breath, No SOB with excertion, No Wheezing, No Hemoptysis, No Pleuritic Pain, No Sputum, No Other Gastrointestinal: Nausea; No Vomiting, No Abdominal Pain, No Diarrhea, No Constipation, No Melena, No Hematochezia, No Other Genitourinary: No Dysuria, No Frequency, No Incontinence, No Hematuria, No Retention, No Other Musculoskeletal: No other, No neck pain, No shoulder pain, No arm pain, No back pain, No hand pain, No leg pain, No foot pain Skin: No Rash, No Lesions, No Jaundice, No Bruising, No Other Objective Vitals Vital Signs Date Time Temp Pulse Resp B/P (MAP) Pulse Ox O2 Delivery O2 Flow Rate FiO2 08/08/24 05:00 98.4 66 18 120/66 (84) 98 98.4 08/07/24 22:15 Room Air* 0 21 Intake/Output Intake and Output 08/08/24 07:00 Intake Total 1950 ml Balance 1950 ml Intake Oral 1950 ml # Voids 6 # Bowel Movements 1 Medications Current Medications Medications Dose Ordered Sig/Fatou Route Start Time Stop Time Status Last Admin Dose Admin Acetaminophen 500 mg Q6HP PRN PO 08/06/24 22:45 08/07/24 10:53 500 MG Ipratropium [place] 0.5 mg Q8HPRN PRN NEB 08/06/24 22:45 Albuterol 2.5 mg Q8HPRN PRN NEB 08/06/24 22:45 Losartan Potassium 50 mg DAILY PO 08/07/24 10:00 08/07/24 10:10 50 MG Aspirin 81 mg DAILY PO 08/07/24 10:00 08/07/24 10:09 81 MG Atorvastatin Calcium 10 mg HS PO 08/07/24 22:00 08/07/24 21:49 10 MG Pantoprazole Sodium 40 mg DAILY IV 08/07/24 10:00 08/07/24 10:10 40 MG Lidocaine HCl 5 ml Q8HPRN PRN TOP 08/07/24 00:30 Oxycodone/ Acetaminophen 1 tab Q4HP PRN PO 08/07/24 13:15 08/07/24 14:37 1 TAB Hydrocortisone Acetate 25 mg Q12HR [place] 08/07/24 22:00 08/07/24 21:49 25 MG Dicyclomine HCl 10 mg BID PRN PO 08/07/24 16:45 Laboratory Results Laboratory Tests 08/07/24 05:50 Urinalysis Test 08/06/24 13:04 Urine Color Light-yellow (Yellow) Urine Clarity Turbid (Clear) H Urine pH 6.0 (5.0-9.0) Urine Specific [place] 1.018 (1.001-1.035) Urine Protein Trace (Negative) H Urine Ketones Negative (Negative) Urine Blood Negative /uL (Negative) Urine Nitrite Negative (Negative) Urine Bilirubin Negative (Negative) Urine Urobilinogen Normal mg/dL (Negative) Urine Leukocyte Esterase Negative /uL (Negative) Urine RBC 3 /hpf (0 - 4) Urine Microscopic WBC 2 /HPF (0-5) Urine Squamous Epithelial Cells Mod /hpf (<5) Urine Bacteria Few /hpf (None Seen) H Urine Mucus Few (None Seen) Urine Yeast (Budding) Occasional /hpf (None Urine Glucose Normal mg/dL (Normal) Labs and/or images reviewed: Labs reviewed by me, Image(s) reviewed by me Assessment/Plan Assessment/Plan Rectal pain: [place]: Anusol suppository, GI consult by Dr. Jesus Quezada appreciated Asthma Hypertension Diverticulosis Rectocele status post pelvic mesh History of CVA 2010 Lupus Sjograns syndrome Cerebral aneurysm 2022 CT abdomen pelvis without contrast negative Time spent 55 minutes Patient is full code Advanced care planning time 20 minutes Plan discussed with: Patient My Orders Orders - WHIT AMEZCUA MD Procedure Category Date Status Time Oxycodone W/ Acet PHA 08/07/24 In Process 5/325mg Tab (Percocet 13:15 Hydrocortisone PHA 08/07/24 In Process Suppository 22:00 * Gi D[facility] Noise Abatement Engineer CONS 08/07/24 Transmitted 13:08 Date of Service: Aug 08, 2024 Billing Provider: WHIT AMEZCUA MD Common Visit Codes: [id number] INP/OBS CARE(HIGH) WHIT AMEZCUA MD Aug 08, 2024 09:29
--- NOTE | 2024-08-08 09:33 | DVHDS2 ---
Discharge Summary Date of Admission Aug 06, 2024 at 21:50 Date of Discharge: Aug 08, 2024 Admitting Diagnosis Rectal pain Wounds: None Labs/Diagnostic Data: Laboratory Results Test 08/07/24 05:50 08/07/24 00:08 08/06/24 14:30 08/06/24 13:04 White Blood Count 4.3 10^3/uL (4.4-10.8) Red Blood Count 4.07 10^6/uL (4.0-5.20) Hemoglobin 11.9 g/dL (12.2-16.2) Hematocrit 36.1 % (36.0-46.0) Mean Corpuscular Volume 88.7 fL (80.0-100.0) Mean Corpuscular Hemoglobin 29.3 pg (28.0-32.0) Mean Corpuscular Hemoglobin Concent 33.0 g/dL (32.0-36.0) Red Cell Distribution Width 13.7 % (11.8-14.3) Platelet Count 236 10^3/uL (140-450) Mean Platelet Volume 8.2 fL (6.9-10.8) Neutrophils (%) (Auto) 47.9 % (37.0-80.0) Lymphocytes (%) (Auto) 35.9 % (10.0-50.0) Monocytes (%) (Auto) 9.6 % (0.0-12.0) Eosinophils (%) (Auto) 5.6 % (0.0-7.0) Basophils (%) (Auto) 1.0 % (0.0-2.0) Neutrophils # (Auto) 2.1 10 ^3/uL (1.6-8.6) Lymphocytes # (Auto) 1.5 10 ^3/uL (0.4-5.4) Monocytes # (Auto) 0.4 10 ^3/uL (0-1.3) Eosinophils # (Auto) 0.2 10 ^3/uL (0-0.8) Basophils # (Auto) 0 10 ^3/uL (0-0.2) Nucleated Red Blood Cells 0.0 % Sodium Level 137 mmol/L (136-145) Potassium Level 4.0 mmol/L (3.5-5.1) Chloride Level 105 mmol/L (98-107) Carbon Dioxide Level 24 mmol/L (20-31) Anion Gap 8 (5-15) Blood Urea Nitrogen 10 mg/dL (9-23) Creatinine 0.65 mg/dL (0.550-1.02) Glomerular Filtration Rate Calc 95 mL/min (>90) BUN/Creatinine Ratio 15.4 (10.0-20.0) Serum Glucose 88 mg/dL (74-106) Calcium Level 9.0 mg/dL (8.7-10.4) HIV (1&2) Antibody Negative (Negative) Erythrocyte Sedimentation Rate 14 mm/hr (0-20) Total Bilirubin 0.3 mg/dL (0.2-1.0) Aspartate Amino Transferase (AST) 17 U/L (13-40) Alanine Aminotransferase (ALT) 20 U/L (7-40) Alkaline Phosphatase 95 U/L (46-116) C-Reactive Protein High Sensitivity 0.33 mg/dL (<1.0) Total Protein 7.0 g/dL (5.7-8.2) Albumin 4.6 g/dL (3.2-4.8) Lipase 41 U/L (12-53) Urine Color Light-yellow (Yellow) Urine Clarity Turbid (Clear) Urine pH 6.0 (5.0-9.0) Urine Specific [place] 1.018 (1.001-1.035) Urine Protein Trace (Negative) Urine Ketones Negative (Negative) Urine Blood Negative /uL (Negative) Urine Nitrite Negative (Negative) Urine Bilirubin Negative (Negative) Urine Urobilinogen Normal mg/dL (Negative) Urine Leukocyte Esterase Negative /uL (Negative) Urine RBC 3 /hpf (0 - 4) Urine Microscopic WBC 2 /HPF (0-5) Urine Squamous Epithelial Cells Mod /hpf (<5) Urine Bacteria Few /hpf (None Seen) Urine Mucus Few (None Seen) Urine Yeast (Budding) Occasional /hpf (None Urine Glucose Normal mg/dL (Normal) Other Laboratory Tests 08/07/24 05:50 Brief Hx & Hospital Course: 69-year-old female with a history of lupus rectocele status post failure weakness history of CVA diverticulosis hypertension asthma 0 gross syndrome cerebral aneurysm 2022 came in complaining of rectal pain CT abdomen pelvis without contrast was negative given Anusol suppository and [place] for the pain seen by GI Dr. Jesus Quezada recommended to discharge the patient on Bentyl and Anusol suppository patient is comfortable being discharged. Consults/Reason for consult GI Dr. Jesus Quezada Operations or Procedures CT abdomen pelvis without contrast Condition at Discharge: Good Final Diagnosis/Problems List Rectal pain: [place]: Anusol suppository, GI consult by Dr. Jesus Quezada appreciated Asthma Hypertension Diverticulosis Rectocele status post pelvic mesh History of CVA 2010 Lupus Sjograns syndrome Cerebral aneurysm 2022 CT abdomen pelvis without contrast negative Discharge Disposition: Home Discharge Instruct/Medications Diet: Regular Activity: Light activity Follow Up/Referral: Follow up with your primary Dr Medications: [place]yl Anusol suppository Sent to the pharmacy 39 (Time taken for discharge summary 39 minutes) Discharge Statement: "Patient was advised to return to the ER or call 911 if any headaches, dizziness, shortness of breath, chest pain, abdominal pain, bleeding, fevers, or worsening of medical condition. Patient was counseled about treatment plan, medications, possible side effects, patientverbalized understanding. All questions were answered to the best of my ability. This discharge took greater then 30 minutes in planning, reviewing documentation, counseling the patient, and discussing with other team members." ASSESSMENT ASSESSMENT Hospital Course Uneventful Assessment Rectal pain: [place]: Anusol suppository, GI consult by Dr. Jesus Quezada appreciated Asthma Hypertension Diverticulosis Rectocele status post pelvic mesh History of CVA 2010 Lupus Sjograns syndrome Cerebral aneurysm 2022 CT abdomen pelvis without contrast negative Date of Service: Aug 08, 2024 Billing Provider: WHIT AMEZCUA MD Common Visit Codes: [id number] DISCH DAY >30min WHIT AMEZCUA MD Aug 08, 2024 09:33
[2024-08-08 10:08] VITALS: O2SAT 94
--- NOTE | 2024-08-08 10:56 | DVHPN2 ---
Progress Note Date Seen: Aug 08, 2024 Resident Creating Document: GARDENIA LAAR RESIDENT Medical Necessity Reason Pt with a Central, PICC or Fol: No Subjective Review of Systems 69-year-old female with past medical history of lupus, Sjogren syndrome, CVA in 2010, cerebral aneurysm 3.5 cm in 2022, rectocele s/p pelvic mesh, asthma, hypertension, recurrent UTIs, diverticulosis, who comes in due to rectal pain that has been ongoing for the past 3 days. Patient notes that pain is 9/10, burning and heavy in nature with radiation to the lower back and right lower quadrant. Patient states pain is constant and mildly reduced with acetaminophen. Reports having normal bowel movements with last bowel movement [address] abdomen pelvis showed no acute process, diverticulosis without diverticulitis. Patient was admitted to [facility] 1 month ago for pelvic pain, patient notes investigation was done however findings were largely unremarkable and patient was sent home with oral NSAIDs which gradually improved her pelvic pain. Patient completed colonoscopy in 2022 also due to her rectal pain and spasms which was largely unremarkable. Patient was seen and examined at the bedside. No acute complaint. Rectal examination completed yesterday showed 1+ palpable hemorrhoids, no tenderness no fissure no bleeding and an empty stool wall. Patient is feeling with better with her pain medications and the Anusol HC suppository Objective vital signs Vital Sign Date Time Temp Pulse Resp B/P (MAP) Pulse Ox O2 Delivery O2 Flow Rate FiO2 08/08/24 10:08 94 Room Air* 0 21 08/08/24 09:48 135/60 08/08/24 09:00 98.0 62 18 98.0 Total Intake and Output 08/07/24 08/07/24 08/08/24 15:00 23:00 07:00 Intake Total 1150 ml 800 ml Balance 1150 ml 800 ml medications Current Medications Medications Dose Ordered Sig/Fatuo Route Start Time Stop Time Status Last Admin Dose Admin Acetaminophen 500 mg Q6HP PRN PO 08/06/24 22:45 08/07/24 10:53 500 MG Ipratropium [place] 0.5 mg Q8HPRN PRN NEB 08/06/24 22:45 Albuterol 2.5 mg Q8HPRN PRN NEB 08/06/24 22:45 Losartan Potassium 50 mg DAILY PO 08/07/24 10:00 08/08/24 09:48 50 MG Aspirin 81 mg DAILY PO 08/07/24 10:00 08/08/24 09:47 81 MG Atorvastatin Calcium 10 mg HS PO 08/07/24 22:00 08/07/24 21:49 10 MG Pantoprazole Sodium 40 mg DAILY IV 08/07/24 10:00 08/08/24 09:48 40 MG Lidocaine HCl 5 ml Q8HPRN PRN TOP 08/07/24 00:30 Oxycodone/ Acetaminophen 1 tab Q4HP PRN PO 08/07/24 13:15 08/07/24 14:37 1 TAB Hydrocortisone Acetate 25 mg Q12HR [place] 08/07/24 22:00 08/08/24 09:48 25 MG Dicyclomine HCl 10 mg BID PRN PO 08/07/24 16:45 Examination General Appearance: Alert, Oriented X3, Cooperative, No acute distress HEENT: Atraumatic, PERRLA, EOMI Respiratory: Clear to auscultation, Normal air movement Cardiovascular: Regular rate, Normal S1, Normal S2, Other (Right lower quadrant tenderness to palpation ) Abdominal: Normal bowel sounds, Soft Extremities: No clubbing, No edema, Normal pulses Skin: No significant lesion Neuro: Normal gait, Normal speech, Sensation intact Psych/Mental Status: Mental status NL, Mood NL Rectal exam: 1+ palpable internal hemorrhoids, nontender no bleeding an empty stool vault, no fissure laboratory and microbiology Laboratory Tests 08/07/24 05:50 Test 08/07/24 05:50 Range/Units Serum Glucose 88 74-106 mg/dL Labs and/or images reviewed: Labs reviewed by me, Image(s) reviewed by me Problem List/Assessment/Plan Problem List/Assessment/Plan Intractable abdominal and rectal pain secondary to hemorrhoids Diverticulosis History of rectocele History of CVA Plan Patient does not need any further GI intervention at this time. Recommended outpatient GI follow up within 2-4 weeks for further management. Patient is clinically stable. GI will sign off at this point. Continue Anusol HC rectal suppositories I will give her Bentyl 10 mg p.o. twice a day as needed for pain Supportive care ; pain control Advance diet as tolerated Plan discussed with patient in which all questions have been answered Case discussed with Dr. Quezada Plan discussed with: Patient GARDENIA LARA RESIDENT Aug 08, 2024 10:56
[2024-08-08 15:06] LABS: Chlamydia Trachomatis, NAA Negative (Negative); Neisseria gonorrhoeae, NAA Negative (Negative)
== END 2024-08-08 13:30 | disposition home or self-care (01) | DRG 395 ==
LOC: ER 12:32 → OVERFLOW 21:50 → CENTRAL 23:57
PROVIDERS: ATTEND Family Medicine
DX: K64.8 Other hemorrhoids (principal); I10 Essential (primary) hypertension; M32.9 Systemic lupus erythematosus, unspecified; K57.30 Diverticulosis of large intestine without perforation or abscess without bleeding; Z82.49 Family history of ischemic heart disease and other diseases of the circulatory system; Z90.49 Acquired absence of other specified parts of digestive tract; Z86.73 Personal history of transient ischemic attack (TIA), and cerebral infarction without residual deficits; Z87.440 Personal history of urinary (tract) infections; Z83.3 Family history of diabetes mellitus; J45.20 Mild intermittent asthma, uncomplicated
CPT/HCPCS: 36415; 74176; 76856; 80048; 80053; 81001; 82270; 83690; 85025; 85048; 85652; 86141; 86703; 87045; 87427; G0378; J2470